=== PATIENT | female | born 1965 | race Caucasian/White ===

== ENCOUNTER 2019-09-20 07:36 | Outpatient (CLI) | payer OTHER, SELFPAY ==
--- NOTE | ~2019-09-20 | US_ITS ---
US abdomen complete EXAMINATION: US Abdomen Complete INDICATION: Abdominal pain PROCEDURE: Realtime High Resolution abdomen ultrasound. COMPARISON: Ultrasound dated 09/08/2016 FINDINGS: Study is significantly limited due to bowel gas and patient body habitus. Gallbladder conta ins sludge. Possible gallstones. Gallbladder is distended. Common bile duct measures 7 mm. Liver echotexture is increased, consistent with fatty infiltration.. Pancreas not well visualized. P ancreatic tail is obscured by bowel gas. Spleen is unremarkeable. Renal echotexture is within normal limits bilaterally without hydronephrosis, contour deforming mass or renal stone. Right kidney measu res 10.4 cm. Left kidney measures 10.9 cm. The aorta and IVC are not well visualized due to bowel gas.. Portal vein is patent. No sonographic Mu rphy's sign indicated by the technologist. IMPRESSION: 1: Gallbladder sludge with possible stones. Common bile duct dilated measuring 7 mm. Consider cholecy stitis in the appropriate clinical setting. 2: Fatty infiltration of the liver. Limited examination. Reviewed, dictated and finalized at location A. CTURES TECHNICIAN IMPRESSION: 1: Gallbladder sludge with possible stones. Common bile duct dilated measuring 7 mm. Consider cholecystitis in the appropriate clinical setting. 2: Fatty infiltration of the liver. Limited examination.
--- NOTE | ~2019-09-20 | US_ITS ---
EXAMINATION: US carotid duplex BI DATE: 09/20/2019 09:24 INDICATION: Hypertension TECHNIQUE: Grayscale, color Doppler, and pulsed Doppler images of the cervical carotid arteries were obtained. The degree of vessel stenosis is placed in one of the following categories: normal, <50%, 5 0-69%, >=70% but less than near-occlusion, near-occlusion, or total occlusion. Note that percent sten osis relative to normal distal artery lumen diameter is indirectly measured from velocity measurement s as described by Pedro, et al. Radiology 2003; [id number]:[id number]. Notes: Normal: Peak systolic velocity <125 centimeters/sec and no plaque <50%. Peak systolic velocity <125 ( EDV <40; ICA/CCA PSV ratio <2.0; used these factors only a tandem lesions or low cardiac output or co ntralateral disease) 50-69 %: PSV 125-230 (EDV 40-100; ratio 2-4) >= 70% but less than near occlusion: PSV greater than 230 (EDV > 100; ratio> 4.0) Near Occlusion: PSV that is variable; markedly narrowed lumen Occlusion: Absent flow on color/spectral Doppler and no lumen on massey scale. COMPARISON: None. FINDINGS: RIGHT: The right common carotid artery (CCA) peak systolic velocity (PSV) is 106 cm/s. The right internal ca rotid artery (ICA) PSV is 100 cm/s. The right ICA end-diastolic velocity (EDV) is 26 cm/s. The right ICA/CCA PSV ratio is 0.9. The external carotid artery (ECA) PSV is 55 cm/s. There is antegrade flow i n the right vertebral artery. LEFT: The left CCA PSV is 81 cm/s. The left ICA PSV is 100 cm/s. The left ICA EDV is 40 cm/s. The left ICA/ CCA PSV ratio is 1.2. The ECA PSV is 84 cm/s. There is antegrade flow in the left vertebral artery. IMPRESSION: 1. Less than 50% stenosis in the right internal carotid artery by sonographic criteria. 2. Less than 50% stenosis in the left internal carotid artery by sonographic criteria. Reviewed, dictated and finalized at location A. ICIAN RELATIONS REPRESENTATIVE IMPRESSION: 1. Less than 50% stenosis in the right internal carotid artery by sonographic rodriguez son. 2. Less than 50% stenosis in the left internal carotid artery by sonographic shashi allen.
== END 2019-09-20 07:37 | disposition home or self-care (01) ==
LOC: ANHIMG 07:42
PROVIDERS: PCP Emergency Medicine; Visit Provider Emergency Medicine
DX: R10.9 Unspecified abdominal pain (principal); I10 Essential (primary) hypertension; R01.1 Cardiac murmur, unspecified; K83.9 Disease of biliary tract, unspecified; K76.0 Fatty (change of) liver, not elsewhere classified; I65.23 Occlusion and stenosis of bilateral carotid arteries
CPT/HCPCS: 76700; 93880